=== PATIENT | female | born 1975 | race Hispanic/Latino ===

== ENCOUNTER 2022-01-27 17:34 | Emergency (ER) | payer MEDICAID, OTHER ==
[~2022-01-27] VITALS: Ht 157.5 cm; Wt 59.0 kg
[2022-01-27 17:39] VITALS: BP 118/73
[2022-01-27 20:39] LABS: APPEARANCE,URINE CLEAR (CLEAR); BACTERIA,URINE RARE /HPF (None Seen); BILIRUBIN,URINE NEGATIVE (NEGATIVE); COLOR,URINE LIGHT-YELLOW (YELLOW); GLUCOSE, URINE (UA) NEGATIVE (NEGATIVE); KETONES,URINE 100 mg/dL (NEGATIVE); LEUKOCYTE ESTERASE ,URINE 25 Leu/uL (NEGATIVE); MUCUS,URINE FEW LPF (None Seen); NITRATE,URINE NEGATIVE (NEGATIVE); PROTEIN,URINE NEGATIVE (NEGATIVE); SQUAMOUS EPITHELIAL CELL,UR RARE /HPF (0-2); UROBILINOGEN,URINE 0.2 mg/dL (0.2-1.0)
[2022-01-27] MEDS ORDERED: IBUP-2070 PO (20:59)
[2022-01-27] MEDS ORDERED: CYCL10TA16 PO (20:59)
== END 2022-01-27 21:29 | disposition home or self-care (01) ==
LOC: EDH 17:34
DX: S30.0XXA Contusion of lower back and pelvis, initial encounter (principal); X58.XXXA Exposure to other specified factors, initial encounter; Y93.89 Activity, other specified; Y92.89 Other specified places as the place of occurrence of the external cause; Y99.8 Other external cause status
CPT/HCPCS: 81001

== ENCOUNTER 2025-02-07 03:23 | Emergency (ER) | payer SELFPAY ==
[~2025-02-07] VITALS: Ht 157.5 cm; Wt 59.9 kg
[~2025-02-07 03:23] MED LIST: BROM118S48 PO; CYCL10TA16 PO; IBUP-1492 PO; ONDA22I SL
--- NOTE | 2025-02-07 03:34 | NUR ---
PT PLACED IN ED 11. PT CARE ASSUMED.
[2025-02-07 03:53] LABS: IMMATURE GRANULOCYTE ABSOLUTE 0.02 K/uL (0-1); NUCLEATED RED BLOOD CELLS 0.0 % (0.0-0.19); PLATELET COUNT (AUTO) 157 K/uL (130-400); RED BLOOD CELL COUNT(AUTO) 4.41 MIL/uL (4.00-5.50); RED CELL DISTRIBUTION WIDTH 12.4 % (11.0-15.5); WHITE BLOOD COUNT (AUTO) 6.5 K/uL (4.8-10.8)
[2025-02-07] MEDS: 0.9%NACL 1000ML 1,000 ML IV SCH (03:54)
--- NOTE | 2025-02-07 03:56 | ERN ---
General Chief Complaint: Abdominal Pain Stated Complaint: C/O ABD PAIN W/N X V X DIARRHEA, WEAKNESS Time Seen by MD: 03:26 History of Present Illness Initial Comments 49-year-old female with a past medical history here for nausea, vomiting, diarrhea, chest pain. Patient says she has developed nausea and vomiting yesterday after a flight. Has been having four episodes of vomiting nonbilious nonbloody and multiple episodes of diarrhea. She is here today because she is unable to sleep secondary to the gastroenteritis symptoms. Denies urinary symptoms Allergies: Coded Allergies: No Known Allergies (Unverified Allergy, Unknown, 01/27/22) Home Meds Active Scripts Ondansetron HCl (Zofran) 4 Mg/2 Ml Inj, 8 MG SL q8hrs PRN for NAUSEA/VOMITING, #30 TAB.SL Prov:PRIETO WING MD 03/09/23 D-Methorphan Hb/P-Epd HCl/Bpm (Bromfed Dm Cough Syrup) 2 Mg-30 Mg-10 Mg/5 Ml Syrup, 118 ML PO TID, #60 ML Prov:PRIETO WING MD 03/09/23 Ibuprofen (Ibuprofen) 600 Mg Tablet, 600 MG PO Q6H for 10 Days, #40 TAB 0 Refills Prov:MECCA MCNULTY MD 01/27/22 Cyclobenzaprine HCl (Flexeril) 10 Mg Tab, 10 MG PO TID for muscle sstiffness, #14 TAB 0 Refills Prov:MECCA MCNULTY MD 01/27/22 Past Medical History Past Medical History: No Pertinent History Past Surgical History: None Social History Social History: Negative Cardiovascular: (+) chest pain Gastrointestinal/Abdominal: (+) nausea, (+) vomiting, (+) diarrhea, (+) abdominal pain Physical Exam Physical Exam Dictation GENERAL APPEARANCE NAD, activity normal for age, well developed/ well nourished, no cyanosis, pallor, or diaphoresis. EYES lids/conjunctiva normal. EARS/NOSE/THROAT Mucous membranes moist, nares normal, poor dentition normal uvula midline without oral pharyngeal erythema, exudate or swelling TMs normal bilaterally. No lymphangitis/lymphedema. HEAD/NECK normocephalic atraumatic, no facial trauma, neck is supple. RESPIRATORY respiratory effort normal, speaks in full sentences, no tripod p osition, no accessory muscle use. Lungs clear to auscultation without rhonchi, wheezes, rales CARDIAC Regular rate and rhythm, no edema. ABDOMINAL Soft, ND/NT. No evidence of fluid wave. No pulsatile masses on exam, rebound tenderness, Costello sign or pain over Mcburney's point. MUSCLES/EXTREMITIES No abnormal range of motion, no swelling. SKIN Warm, pink and dry. No rashes, dermatoses, petechiae or lesions. NEUROLOGICAL Speech is clear and appropriate. Normal level of consciousness. Gait and coordination are normal. 5/5 strength in all extremities. PSYCH Normal mood and affect. Judgement/competence is appropriate Results Laboratory and Microbiology Lab and Micro Result Laboratory Tests Test 02/07/25 03:45 02/07/25 03:58 White Blood Count 6.5 K/uL (4.8-10.8) Red Blood Count 4.41 MIL/uL (4.00-5.50) Hemoglobin 13.2 g/dL (12.0-16.0) Hematocrit 38.4 % (36-48) Mean Corpuscular Volume 87.1 fL (79-99) Mean Corpuscular Hemoglobin 29.9 pg (27.0-33.0) Mean Corpuscular Hemoglobin Concent 34.4 g/dL (32.0-36.0) Red Cell Distribution Width 12.4 % (11.0-15.5) Platelet Count 157 K/uL (130-400) Mean Platelet Volume 9.6 fL (7.5-10.5) Immature Granulocyte % (Auto) 0.3 % (0-1) Neutrophils (%) (Auto) 85.3 % (40.0-77.0) H Lymphocytes (%) (Auto) 8.0 % (21.0-51.0) L Monocytes (%) (Auto) 6.2 % (3.0-13.0) Eosinophils (%) (Auto) 0.2 % (0.0-8.0) Basophils (%) (Auto) 0.0 % (0.0-5.0) Neutrophils # (Auto) 5.6 K/uL (1.8-7.7) Lymphocytes # (Auto) 0.5 K/uL (1.0-4.8) L Monocytes # (Auto) 0.4 K/uL (0.1-1.0) Eosinophils # (Auto) 0.01 K/uL (0.00-0.70) Basophils # (Auto) 0.00 K/uL (0.00-0.20) Absolute Immature Granulocyte (auto 0.02 K/uL (0-1) Nucleated Red Blood Cells 0.0 % (0.0-0.19) White Cell Morphology Comment CONSISTENT W/DIFF Sodium Level 139 mmol/L (136-145) Potassium Level 3.6 mmol/L (3.5-5.1) Chloride Level 104 mmol/L (101-111) Carbon Dioxide Level 27 mmol/L (21-32) Blood Urea Nitrogen 13 mg/dL (7-18) Creatinine 0.6 mg/dL (0.5-1.0) Glomerular Filtration Rate Calc 110 mL/min (>90) Random Glucose 131 mg/dL (70-105) H Total Calcium 8.9 mg/dL (8.5-10.1) Total Bilirubin 0.7 mg/dL (0.2-1.0) Direct Bilirubin 0.1 mg/dL (0.0-0.3) Aspartate Amino Transf (AST/SGOT) 46 U/L (10-37) H Alanine Aminotransferase (ALT/SGPT) 40 U/L (12-78) Alkaline Phosphatase 112 U/L (50-136) Troponin I High Sensitivity < 4 ng/L (4-50) L Total Protein 7.2 g/dL (6.0-8.3) Albumin 3.7 g/dL (3.5-5.0) Lipase 46 U/L (16-77) Urine Color LIGHT-YELLOW (YELLOW) Urine Appearance CLOUDY (CLEAR) H Urine pH 8.5 (5.0-8.0) H Urine Specific [place] 1.019 (1.001-1.031) Urine Protein NEGATIVE mg/dL (NEGATIVE) Urine Glucose (UA) NEGATIVE mg/dL (NEGATIVE) Urine Ketones NEGATIVE mg/dL (NEGATIVE) Urine Occult Blood NEGATIVE (NEGATIVE) Urine Nitrate NEGATIVE (NEGATIVE) Urine Bilirubin NEGATIVE mg/dL (NEGATIVE) Urine Urobilinogen 0.2 mg/dL (0.2-1.0) Urine Leukocyte Esterase 500 [place]/uL (NEGATIVE) H Urine RBC 2-5 /HPF (0-1) H Urine WBC 2-5 /HPF (0-1) H Urine Squamous Epithelial Cells FEW /HPF (0-2) Urine Bacteria RARE /HPF (None Seen) MDM 49-year-old female here for evaluation of gastroenteritis symptoms. We will get labs and provide medications. Disposition pending results of labs and clinical improvement ED Course Orders Procedure Category Date Status Time Urinalysis Profile LAB 02/07/25 Complete 03:26 Basic Metabolic Panel LAB 02/07/25 Complete 03:27 Cbc With Differential LAB 02/07/25 Complete 03:27 Hepatic Function Panel LAB 02/07/25 Complete 03:27 Lipase LAB 02/07/25 Complete 03:27 Troponin I High LAB 02/07/25 Complete Sensitivity 03:27 0.9%Nacl 1000ml (Ns PHA 02/07/25 In Process 1000ml) 03:30 Ondansetron 4mg Inj PHA 02/07/25 In Process (Zofran 4mg Inj) 03:30 Dicyclomine Hcl PHA 02/07/25 Complete (Bentyl 20mg Inj) 04:00 Culture Urine ANA 02/07/25 In Process 04:11 Current Medications Medications (Trade) Dose Ordered Sig/Thao Route PRN Reason Start Time Stop Time Status Last Admin Dose Admin Dicyclomine HCl (Bentyl 20mg Inj) 20 mg ONCE ONCE IM 02/07/25 04:00 02/07/25 04:01 DC Ondansetron HCl (zoFRAN 4MG INJ) 4 mg ONCE ONCE IVP 02/07/25 03:30 02/07/25 03:37 DC 02/07/25 03:54 Sodium Chloride 1,000 ml @ 0 mls/hr Q0M IV 02/07/25 03:30 03/09/25 03:29 02/07/25 03:54 Vital Signs Date Time Temp Pulse Resp B/P (MAP) Pulse Ox O2 Delivery O2 Flow Rate FiO2 02/07/25 04:25 98.1 76 17 130/69 100 Room Air* 0 21 02/07/25 03:25 98.2 97 20 130/86 100 Room Air 5:00 a.m.: Patient states she does not want Bentyl and her abdominal pain has improved. We will discharge home at this time. Patient's prior external medical records from other ER visits were reviewed by me as indicated. Prior testing and results from previous visits were reviewed. Prior tests were taken into account with medical decision making and resource utilization, independent historian/historians were used to obtain complete medical history. I independently interpreted the test that were performed, results were reviewed by me and considered findings on radiology if ordered. Medical management and examination interpretation discussions were had by me with other qualified healthcare professionals as indicated for the patient's care. Labs and imaging reviewed with patient. All questions answered at this time. Patient advised to follow up with primary care physician in the next few days. Patient well-appearing, no acute distress. Vital signs stable. Will discharge at this time. DX & DISP Disposition: Discharge Departure Impression: Primary Impression: Gastroenteritis Condition: Stable Scripts Dicyclomine HCl (Bentyl) 10 Mg Cap 1 CAP PO TID for irritable bowel symptoms for 7 Days, #21 CAP 0 Refills Prov: DENNY PALOMINO MD 02/07/25 Ondansetron (Ondansetron Odt) 4 Mg Tab.rapdis 1 TAB PO Q6HPRN PRN for nausea/vomiting for 4 Days, #16 TAB 0 Refills Prov: DENNY PALOMION MD 02/07/25 Referrals: SELF,REFERRAL (PCP) DENNY PALOMINO MD Feb 07, 2025 03:56
[2025-02-07 04:05] LABS: APPEARANCE,URINE CLOUDY (CLEAR); GLUCOSE, URINE (UA) NEGATIVE (NEGATIVE); LEUKOCYTE ESTERASE ,URINE 500 Leu/uL (NEGATIVE); NITRATE,URINE NEGATIVE (NEGATIVE); OCCULT BLOOD,URINE NEGATIVE (NEGATIVE)
[2025-02-07 04:06] LABS: CREATININE 0.6 mg/dL (0.5-1.0); GLOMERULAR FILTR. RATE CALC 110.0 mL/min (>90); GLUCOSE,RANDOM 131.0 mg/dL (70-105); SODIUM SERUM 139.0 mmol/L (136-145); UREA NITROGEN, BLOOD 13.0 mg/dL (7-18)
[2025-02-07 04:10] LABS: ASPARTATE AMINOTRANSFERASE 46.0 U/L (10-37); TOTAL PROTEIN, SERUM 7.2 g/dL (6.0-8.3)
[2025-02-07 04:11] LABS: ADD UA MICROSCOPIC YES
[2025-02-07 04:11] LABS: WBC MORPHOLOGY CONSISTENT W/DIFF
[2025-02-07 04:12] LABS: SQUAMOUS EPITHELIAL CELL,UR FEW /HPF (0-2)
[2025-02-07] MEDS: DICYCLOMINE 20MG (10MG/ML) AMP IM ONE (04:51)
[2025-02-07] MEDS ORDERED: ONDA-243 PO (05:02)
[2025-02-07] MEDS ORDERED: DICY10 PO (05:02)
[2025-02-07 06:05] VITALS: BP 130/75; PULSE 65; RESP 16; TEMP 98.1; O2SAT 98
== END 2025-02-07 06:06 | disposition home or self-care (01) ==
LOC: EDH 03:23
DX: K52.9 Noninfective gastroenteritis and colitis, unspecified (principal); R11.2 Nausea with vomiting, unspecified
CPT/HCPCS: 99283; 96374; 84484; 80076; 80048; 83690; 85025; 87086; 81001; 36415; J7030; J2405; J0500